=== PATIENT | female | born 1985 | race African-American/Black ===

== ENCOUNTER 2018-11-04 19:20 | Emergency (ER) | payer BC, OTHER ==
[~2018-11-04] VITALS: Ht 160 cm; Wt 78.0 kg
[~2018-11-04 19:20] MED LIST: DICYCLOMINE HCL20 MG PO; SUCRALFATE1 GM PO; TYLENOL PO; VALACYCLOVIR500 MG PO
--- OUTSIDE RECORDS SUMMARY | 2018-11-04 19:22 | XMS REPORT | Clinical Summary ---
Author Author [facility] Address Unknown Phone Unavailable Care Team Providers Care Manager Filter Name Role Phone Jose Luis Aguilera MD PCP Allergies Comments Active Allergy Reactions Severity Noted Date Penicillins Hives, Rash Low 02/03/2016 Medications No known medications Active Problems Problem Noted Date Cholecystitis 08/09/2016 Choledocholithiasis 08/09/2016 Overview: Added automatically from request for surgery [id number] Screening 08/09/2016 Overview: Added automatically from request for surgery [id number] Gastroesophageal reflux disease with esophagitis 02/03/2016 Overview: EGD 04/2015. Was on medication, had SE, caused chest pain, stopped medication. Has ongoing sx, heartburn, epigastric discomfort. Herpes simplex vulvovaginitis 02/03/2016 Overview: On valtrex prophylaxis Bacterial vaginosis 02/03/2016 Overview: Recurrent episodes Immunizations Name Dates Previously Given Next Due Tdap 01/17/2008 Family History Medical History Relation Name Comments No Known Problems Brother No Known Problems Brother Hyperlipidemia Father Old age Maternal Grandfather Diabetes Maternal Grandmother No Known Problems Mother Old age Paternal Grandfather Old age Paternal Grandmother No Known Problems Sister No Known Problems Sister Relation Name Status Comments Brother Alive Brother Alive Father Alive Maternal Grandfather unknown Maternal Grandmother Mother Alive Paternal Grandfather Paternal Grandmother Sister Alive Sister Alive Social History Date Tobacco Use Types Packs/Day Years Used Never Smoker Smokeless Tobacco: Never Used Alcohol Use Drinks/Week oz/Week Comments Yes social Sex Assigned at Date Recorded Not on file Industry Job Start Date Occupation Not on file Not on file Not on file Travel End Travel History Travel Start No recent travel history available. Last Filed Vital Signs Not on file Plan of Treatment Health Maintenance Due Date Last Done Comments INFLUENZA VACCINE 10/26/2018 Results Not on fileafter 11/03/2017 Insurance Type Payer Benefit Subscriber ID Effective Phone Address Plan / Dates Group PPO BCBS BCBS xxxxxxxxxxxx 2014- CHOICE Present PPO/[employer] EMPL PPO HMO/PPO [facility] xxxxxxxxx 2015- THCARE Present CHOICE/CHO ICE + Advance Directives Patient has advance care planning documents, and code status on file. For more i nformation, please contact: Izaiah Riddle [address] [place] [address] Date Inactivated Comments Code Status Date Activated 08/12/2016 12:48 AM Full Code 08/09/2016 2:32 PM Code Status decision reached by: Patient
[2018-11-04] MEDS ORDERED: DICYCLOMINE HCL 20 MG/2 ML VIAL IM ONE (20:00)
[2018-11-04] MEDS ORDERED: FAMOTIDINE 20 MG/2 ML VIAL IV NR (20:00)
[2018-11-04] MEDS ORDERED: PANTOPRAZOLE 40 MG 10ML VIAL IV NR (20:00)
[2018-11-04 20:12] LABS: BILIRUBIN,URINE NEGATIVE (NEGATIVE); CLARITY,URINE CLEAR (CLEAR); COLOR,URINE YELLOW (YELLOW); KETONES,URINE NEGATIVE (NEGATIVE); LEUKOCYTE ESTERASE ,URINE NEGATIVE (NEGATIVE); NITRITE,URINE NEGATIVE (NEGATIVE); PROTEIN,URINE DIPSTICK NEGATIVE (NEGATIVE); URINE UROBILINOGEN 0.2 mg/dL (0.2 - 1)
[2018-11-04 20:25] LABS: BASOPHILS # (AUTO) 0.1 (0.0-0.1); BASOPHILS % 0.4 % (0.0-1.0); EOSINOPHILS # (AUTO) 0.2 (0.0-0.4); EOSINOPHILS % 1.6 % (0.0-6.0); HEMATOCRIT 39.3 % (34.2-44.1); LYMPHOCYTES # (AUTO) 3.8 (1.0-3.2); LYMPHOCYTES % 27.7 % (18.0-39.1); MEAN CORPUSCULAR HEMOGLOBIN 32.3 pg (28-32); MEAN CORPUSCULAR HGB CONC 33.1 g/dL (31-35); MEAN CORPUSCULAR VOLUME 97.8 fL (81-99); MONOCYTES % 7.5 % (4.4-11.3); NEUTROPHILS # (AUTO) 8.5 (2.1-6.9); NEUTROPHILS % 62.5 % (38.7-80.0); PLATELET COUNT 356 x10e3/uL (140-360); RED BLOOD COUNT 4.02 x10e6/uL (3.6-5.1); RED CELL DISTRIBUTION WIDTH 12.2 % (11.7-14.4)
[2018-11-04 20:34] LABS: BACTERIA,URINE FEW /HPF; EPITHELIAL CELLS,URINE FEW /LPF; RBC,URINE 0-5 /HPF (0-5); WBC,URINE (MAN) 0-5 /HPF (0-5)
[2018-11-04 20:35] LABS: PREGNANCY TEST, URINE NEGATIVE (NEGATIVE)
[2018-11-04 20:35] LABS: ALANINE AMINOTRANSFERASE 18 IU/L (0-55); ALBUMIN 4.1 g/dL (3.5-5.0); ALBUMIN/GLOBULIN RATIO 1.1 (0.8-2.0); ALKALINE PHOSPHATASE 81 IU/L (40-150); BLOOD UREA NITROGEN 13 mg/dL (7-26); BUN/CREATININE RATIO 14 (6-25); CALCIUM 10.1 mg/dL (8.4-10.2); CARBON DIOXIDE 27 mmol/L (22-29); CHLORIDE 102 mmol/L (98-107); CREATININE, SERUM 0.92 mg/dL (0.57-1.11); EST GLOMERULAR FILTRATION RATE > 60 ML/MIN (60-); GLUCOSE 83 mg/dL (74-118); SODIUM 139 mmol/L (136-145)
[2018-11-04] MEDS ORDERED: ONDANSETRON HCL INJ 2MG/ML 2ML 2 MG/ML VIAL IV STA (20:56)
[2018-11-04] MEDS ORDERED: MORPHINE SULFATE 5 MG/ML VIAL IV ONE (21:00)
[2018-11-04 21:43] LABS: AMYLASE 48 U/L (25-125); LIPASE 15 U/L (8-78)
[2018-11-04] MEDS ORDERED: MORPHINE SULFATE INJ 4 MG/ML INJ 1ML ONE (21:46)
[2018-11-04] MEDS ORDERED: MORPHINE SULFATE 2 MG/ML SYR 1ML ONE (21:46)
--- NOTE | 2018-11-04 22:08 | NUR ---
PT REPORTS IRRITATION TO RUE, REDNESS NOTED TO RIGHT UPPER ARM FOLLOWING IV MEDICATION ADMINISTRATION; ER MD NOTIFIED, NEW ORDERS RECEIVED
[2018-11-04] MEDS ORDERED: DIPHENHYDRAMINE HCL INJ 50 MG/ML VIAL IV ONE (22:15)
[2018-11-04] MEDS ORDERED: METHYLPREDNISOLONE SOD SUCC 125 MG/2ML VIAL IV ONE (22:15)
--- NOTE | 2018-11-05 00:11 | NUR ---
RAD CALLED FOR UPDATE ON RAD REPORT, WILL CALL RADIOLOGIST
--- NOTE | 2018-11-05 00:40 | Diagnostic Imaging Report ---
EXAM: CT Abdomen and Pelvis WITH contrast INDICATION: Sharp Abdominal pain COMPARISON: None. TECHNIQUE: Abdomen and pelvis were scanned utilizing a multidetector helical scanner from the lung base to the pubic symphysis after administration of IV contrast. Coronal and sagittal reformations were obtained. Routine protocol was performed. Scan was performed when during portal venous phase. IV CONTRAST: 100 cc Isovue-300 ORAL CONTRAST: Water RADIATION DOSE: Total DLP: 356.76 mGy*cm Estimated effective dose: (DLP x 0.015 x size factor) mSv COMPLICATIONS: None FINDINGS: LINES and TUBES: None. LOWER THORAX: Unremarkable HEPATOBILIARY: No focal hepatic lesions. No biliary ductal dilation. GALLBLADDER: There are cholecystectomy clips. SPLEEN: No splenomegaly. PANCREAS: No focal masses or ductal dilatation. ADRENALS: No adrenal nodules KIDNEYS/URETERS: Kidneys enhance symmetrically. No hydronephrosis. 2.2 cm low-attenuation lesion in the posterior upper interpolar region of the left kidney on image 28 series 2. Additional subcentimeter low-attenuation lesions scattered throughout the renal cortex bilaterally are too small to be characterized, however, statistically most likely to represent small cysts. No stones. GI TRACT: No abnormal distention, wall thickening, or evidence of bowel obstruction. Appendix is normal. PELVIC ORGANS/BLADDER: Vaginal tampon. LYMPH NODES: No lymphadenopathy. VESSELS: Unremarkable. PERITONEUM / RETROPERITONEUM: No free air or fluid. BONES: Unremarkable. SOFT TISSUES: Unremarkable. IMPRESSION: 1. No acute abdominal pelvic abnormality. 2. Status post cholecystectomy. No significant biliary dilatation. Signed by: Dr. Bandar Mejia M.D. on 11/05/2018 12:37 AM
[2018-11-05] MEDS ORDERED: KETOROLAC TROMETHAMINE 30 MG/ML VIAL IV STA (00:57)
[2018-11-05] MEDS ORDERED: OMEPRAZOLE40 MG PO (01:21)
[2018-11-05 01:36] VITALS: BP 112/61
[2018-11-05] MEDS ORDERED: IOPAMIDOL 370 MG/ML 200 ML INFUS..BTL INJ ONE (03:26)
[2018-11-05] MEDS ORDERED: SODIUM CHLORIDE 0.9% 50ML 50 ML ONE (03:26)
== END 2018-11-05 01:40 | disposition home or self-care (01) ==
LOC: ER 19:20
DX: R10.13 Epigastric pain (principal); K29.00 Acute gastritis without bleeding
CPT/HCPCS: 36415; 74177; 80053; 81001; 81025; 82150; 83690; 85025; 99284; C9113; J0500; J1200; J1885; J2270 ×2; J2405; J2930; Q9967